=== PATIENT | female | born 1995 | race Two or more races ===

== ENCOUNTER 2022-12-15 00:31 | Emergency (ER) | payer SELFPAY ==
[~2022-12-15] VITALS: Ht 165.1 cm; Wt 69.9 kg
[2022-12-15 01:43] VITALS: BP 114/63
--- NOTE | 2022-12-15 01:43 | NUR ---
bibs for upper abd pain and n/v x 2 days
[2022-12-15] MEDS ORDERED: IV NS 0.9% 1,000 ML BAG IV ONE (02:00)
[2022-12-15] MEDS ORDERED: ONDANSETRON HCL/PF 4 MG/2 ML VIAL IVP ONE (02:00)
[2022-12-15] MEDS ORDERED: KETOROLAC TROMETHAMINE INJ 30 MG/ML VIAL IV ONE (02:00)
[2022-12-15] MEDS ORDERED: ONDANSETRON HCL/PF 4 MG/2 ML VIAL ONE (02:02)
[2022-12-15] MEDS ORDERED: KETOROLAC TROMETHAMINE INJ 30 MG/ML VIAL ONE (02:02)
--- NOTE | 2022-12-15 02:11 | NUR ---
Patient does not wish to proceed with medical care recommended by Dr. Nguyen. Patient given information related to possible complications, up to and including , which could occur as a result of leaving the hospital at this time. Patient verbalizes understanding of risks involved due to leaving against medical advice. Patient has signed AMA form.
== END 2022-12-15 02:11 | disposition left against medical advice (07) ==
LOC: ER 00:36
DX: R10.13 Epigastric pain (principal); F17.200 Nicotine dependence, unspecified, uncomplicated
CPT/HCPCS: J1885; J2405; J7030